=== PATIENT | female | born 1980 | race Caucasian/White ===

== ENCOUNTER 2022-03-19 07:50 | Outpatient (CLI) | payer OTHER, SELFPAY ==
[2022-03-19 08:33] LABS: Potassium 4.4 mmol/L (3.4-5.0)
[2022-03-19 08:35] LABS: Basophils Absolute Auto 0.1 K/mm3 (0.0-0.1); Basophils Percent Auto 0.8 % (0.2-1.2); Eosinophils Absolute Auto 0.3 K/mm3 (0-0.3); Eosinophils Percent Auto 2.9 % (0-4.4); Hematocrit 44.7 % (37.0-47.0); Hemoglobin 14.9 g/dL (12.0-15.0); Immature Granulocyte Absolute 0.07 K/mm3 (0.00-0.031); Immature Granulocyte Percent A 0.7 % (0-0.5); Lymphocytes Absolute Auto 1.88 K/mm3 (0.9-3.2); Lymphocytes Percent Auto 18.5 % (18.3-44.2); Mean Corpuscular HGB Conc 33.3 g/dl (32-36); Mean Corpuscular Hemoglobin 30.5 pg (26-34); Mean Corpuscular Volume 91.6 fl (80-100); Mean Platelet Volume 9.3 fl (7.4-10.4); Monocytes Absolute Auto 0.7 K/mm3 (0.1-0.6); Monocytes Percent Auto 6.4 % (2.6-8.5); Neutrophils Absolute Auto 7.2 K/mm3 (1.3-6.7); Neutrophils Percent Auto 70.7 % (45.5-73.1); Platelet Count Result 341 k/mm3 (150-375); Red Blood Count 4.88 M/mm3 (4.2-5.4); Red Cell Distribution Width 11.7 % (11.5-14.5); White Blood Count 10.1 K/mm3 (4.5-10.0)
== END 2022-03-19 07:51 | disposition home or self-care (01) ==
LOC: ANHLAB 07:54
PROVIDERS: PCP Internal Medicine; Visit Provider Nurse Practitioner
DX: D72.829 Elevated white blood cell count, unspecified (principal); E87.6 Hypokalemia
CPT/HCPCS: 36415; 84132; 85025

== ENCOUNTER → 2022-12-20 12:40 | Outpatient (CLI) | payer OTHER, SELFPAY ==
--- NOTE | ~2022-12-20 | MM_ITS ---
EXAMINATION: MM screening raul BI w dolores HISTORY: Screening mammogram TECHNIQUE: Craniocaudal and mediolateral oblique 3-D tomosynthesis images were obtained and synthetic 2-D images were generated. CAD analysis was submitted and interpreted. COMPARISON: No prior mammogram is available for comparison at this institution. BREAST PARENCHYMAL COMPOSITION: There are scattered areas of fibroglandular density. FINDINGS: There is no evidence of suspicious mass, calcification, or architectural distortion to sugg est malignancy in either breast. There has been no suspicious interval change. IMPRESSION: 1. No mammographic evidence of malignancy. 2. Recommend routine screening mammography in one year. BI-RADS Category 1: Negative Reviewed, dictated and finalized at location A. SET OPERATOR
== END ==
PROVIDERS: PCP Nurse Practitioner; Visit Provider Nurse Practitioner
DX: Z12.31 Encounter for screening mammogram for malignant neoplasm of breast (principal)
CPT/HCPCS: 77063; 77067

== ENCOUNTER 2025-08-11 12:46 | Emergency (ER) | payer OTHER, SELFPAY ==
[2025-08-11] VITALS (24 sets, daily range): BP systolic 125–149; BP diastolic 70–104; PULSE 71–109; RESP 13–25; TEMP 36.8–36.9; O2SAT 96–100
--- NOTE | ~2025-08-11 | XR_ITS ---
EXAMINATION: XR chest 2V, 08/11/2025 14:10 CDT HISTORY: chest pain COMPARISON: No comparisons available. Technique: 2 views obtained. Findings: The lungs are clear, no effusion. No pneumothorax. Heart is normal size. Mediastinal and hilar contours are within normal limits. Bony thorax no acute abnormality. Impression: No acute cardiopulmonary abnormality. Reviewed, dictated and finalized at location P. Impression: No acute cardiopulmonary abnormality.
--- NOTE | ~2025-08-11 | US_ITS ---
EXAMINATION: US right upper quadrant DATE: 08/11/2025 15:17 INDICATION: Right upper quadrant abdominal pain TECHNIQUE: Multiple grayscale and Doppler ultrasound images of the abdomen were obtained. COMPARISON: None FINDINGS: The pancreatic head and body are normal in appearance. The pancreatic tail is not visualized. Liver has normal echogenicity and contour, with a smooth surface. No liver lesion identified. No intrahepatic biliary duct dilation suspected. Portal venous flow was seen in the hepatopetal, normal direction and has normal Doppler waveform. Gallbladder wall echogenic shadow complex with multiple shadowing gallstones filling and obscuring the posterior aspect of the gallbladder. Common bile duct measures 4 mm diameter which is normal. Slice portions the right kidney demonstrates normal contour and echogenicity with no hydronephrosis. Sonographic Jones sign was reported as negative by the analytical technician. IMPRESSION: 1. Numerous gallstones filling the gallbladder which is not dilated and without sonographic Jones sign to suggest acute cholecystitis. No intra- or extrahepatic hepatic biliary ductal dilation. Reviewed, dictated and finalized at location A. IMPRESSION: 1. Numerous gallstones filling the gallbladder which is not dilated and without sonographic Jones sign to suggest acute cholecystitis. No intra- or extrahepa tic hepatic biliary ductal dilation.
--- NOTE | 2025-08-11 12:51 | ECG_ITS ---
Test Date: 2025-08-11 12:56:40 Measurements Intervals [place] Rate: 92 P: 42 MS: 141 QRS: 28 QRSD: 86 T: 30 QT: 366 QTc: 454 Interpretive Statements SINUS RHYTHM NONSPECIFIC ST & T-WAVE ABNORMALITY- INFERIOR LEADS BORDERLINE ECG No previous ECG available for comparison Electronically Signed On 08-11-2025 13:05:57 CDT by Roberto Pickering D.O.
[2025-08-11] MEDS: ASPIRIN 81 MG CHEWABLE TABLET 324 MG PO (14:01)
[2025-08-11 14:08] LABS: Hematocrit 43.7 % (37.0-47.0); Hemoglobin 14.8 g/dL (12.0-15.0); Immature Granulocyte Percent A 0.6 % (0-0.5); Lymphocytes Absolute Auto 2.29 K/mm3 (0.9-3.2); Mean Corpuscular HGB Conc 33.9 g/dl (32-36); Mean Corpuscular Hemoglobin 30.3 pg (26-34); Mean Corpuscular Volume 89.4 fl (80-100); Nucleated Red Blood Cells Absolute Auto 0.000 K/mm3 (0.0-0.012); Nucleated Red Blood Cells Perc 0.0 % (0.0-0.2); Platelet Count Result 309 k/mm3 (150-375); Red Blood Count 4.89 M/mm3 (4.2-5.4); White Blood Count 14.0 K/mm3 (4.5-10.0)
--- NOTE | 2025-08-11 14:18 | ED.GENADULT ---
HPI - General Adult General Chief complaint: Chest Pain <Danita Bone March, - Last Filed: 08/11/25 19:41> Stated complaint: chest pain <Danita Bone March, - Last Filed: 08/11/25 19:41> Time Seen by Provider: 08/11/25 13:16 <Danita Bone March, - Last Filed: 08/11/25 19:41> History of Present Illness HPI narrative: Lizette Negrete is a 45 y/o female with past medical history of hypertension who presents today with reports of having chest pain last night. She said around 8:00 a.m. she thought that she felt hunger pains in her upper abdomen so she went ice cream and was laying down and took a bite and then started to have severe sharp very tight it to the epigastric area pain to the point that her had called 911. EMS came and did an EKG in vital signs and while they were there the pain went completely away. She states that the pain is still gone she feels a little slight epigastric pain at that feels like an after effect raining out like a 1/10. She denies any nausea or vomiting now but says that she felt a little nauseous last night. No history of heart attack in the past denies shortness of breath no chest pain at this time. <Danita Bone March, Last Filed: 08/11/25 19:41> Related Data Home medications: Home Medications ?Medication ?Instructions ?Recorded ?Confirmed ?Last Taken ?Type cetirizine 10 mg tablet (Zyrtec) 10 mg PO DAILY 11/01/20 01/29/25 Unknown History cholecalciferol (vitamin D3) 25 1,000 unit PO DAILY 11/01/20 01/29/25 Unknown History mcg (1,000 unit) capsule multivitamin-ferrous 1 tablet PO DAILY 11/01/20 01/29/25 Unknown History fumarate-folic acid 18 mg-400 mcg tablet (Centrum) zonisamide 100 mg capsule 200 mg PO DAILY 11/01/20 01/29/25 Unknown History <Danita Bone March, Last Filed: 08/11/25 19:41> Allergies/adverse reactions: Allergies Allergy/AdvReac Type Severity Reaction Status Date / Time ibuprofen Allergy Unknown Hives Verified 10/08/25 12:49 hydrogen peroxide Allergy Rash Verified 08/11/25 12:49 <Danita Rodriguez APRN - Last Filed: 08/11/25 19:41> Review of Systems Review of Systems: All systems reviewed & are unremarkable except as noted in HPI and below <Danita Rodriguez ACQUISITIONS ASSISTANT - Last Filed: 08/11/25 19:41> PMFSH Past Medical History Medical History: Medical History Hyperkalemia Bunion removal delivery delivered 03/18/13 Heartburn Allergies Depression Chronic fatigue Essential hypertension Hypercholesterolemia with hypertriglyceridemia Hypokalemia IIH (idiopathic intracranial hypertension) <Danita Rodriguez ACQUISITIONS ASSISTANT - Last Filed: 08/11/25 19:41> Surgical History Surgical History: Surgical History H/O: hysterectomy <Danita Rodriguez ACQUISITIONS ASSISTANT - Last Filed: 08/11/25 19:41> Family History Family History: Family History Mother Patient's mother is in good health Father Sleep apnea Mixed hyperlipidemia Intracranial hypertension <Danita Rodriguez ACQUISITIONS ASSISTANT - Last Filed: 08/11/25 19:41> Social History Social History: Social History Smoking status: Never smoker Alcohol intake: never Lack of Transportation: No Lack of Food: Never True Current Housing: I Have Housing Concerned About Future Housing: No Difficulty Paying Gas/Electric Bills: No Difficulty Paying for Meds: No Currently Unemployed: No Education: Master's Degree or Higher Difficulty w/ Childcare or Family Care: No <Danita Rodriguez, ACQUISITIONS ASSISTANT - Last Filed: 08/11/25 19:41> Exam Narrative: GENERAL: Well-appearing, well-nourished, and in no acute distress. HEAD: Normocephalic, atraumatic. EYES: PERRLA and EOMI. ENT: Nares clear, no rhinorrhea or epistaxis. Mucous membranes moist. Oropharynx without tonsillar hypertrophy exudate or other lesions. NECK: Supple. No adenopathy or masses. No carotid bruits or JVD CHEST: Clear to auscultation. No respiratory distress. No wheezes rales or rhonchi HEART: Regular rate and rhythm. No murmur heard. Normal peripheral pulses. ABDOMEN: Soft, nondistended, normal active bowel sounds, + epigastric pain with palpation EXTREMITIES: Normal range of motion. No edema. SKIN: Warm, dry, no rash. NEURO: No focal deficits. Alert and oriented x3. PSYCH: Normal mood and affect. <Danita Rodriguez, ACQUISITIONS ASSISTANT - Last Filed: 08/11/25 19:41> Course Vital Signs Vital signs: Vital Signs Temperature 36.8 C 08/11/25 12:50 Pulse Rate 109 H 08/11/25 12:50 Respiratory Rate 20 08/11/25 12:50 Blood Pressure 148/98 H 08/11/25 12:50 Pulse Oximetry 96 08/11/25 12:50 Temperature 36.8 C 08/11/25 12:50 Pulse Rate 88 08/11/25 19:31 Respiratory Rate 13 08/11/25 19:31 Blood Pressure 132/84 08/11/25 19:31 Pulse Oximetry 99 08/11/25 19:31 Oxygen Delivery Room Air 08/11/25 15:45 <Danita Rodriguez, ACQUISITIONS ASSISTANT - Last Filed: 08/11/25 19:41> Vital Signs Temperature 36.8 C 08/11/25 12:50 Pulse Rate 109 H 08/11/25 12:50 Respiratory Rate 20 08/11/25 12:50 Blood Pressure 148/98 H 08/11/25 12:50 Pulse Oximetry 96 08/11/25 12:50 Temperature 36.8 C 08/11/25 12:50 Pulse Rate 88 08/11/25 19:31 Respiratory Rate 13 08/11/25 19:31 Blood Pressure 132/84 08/11/25 19:31 Pulse Oximetry 99 08/11/25 19:31 Oxygen Delivery Room Air 08/11/25 15:45 <Nuha Hidalgo, ACQUISITIONS ASSISTANT - Last Filed: 08/11/25 21:37> Medical Decision Making MDM Narrative Medical decision making narrative: 45-year-old presents with reports of having episode mid chest epigastric tight pain 08/13 last night the lasted about 30 minutes. The pain has not returned she is feeling well no chest pain or shortness of breath no fevers no chills no nausea no vomiting she called her primary care doctor today to let them know to follow up to see well she should do they told her that she should go to the emergency room for further evaluation. Concern for cardiac ischemia mom cholecystitis, cholelithiasis, GERD Plan to check labs chest x-ray ultrasound of right upper quadrant EKG- Sinus Rate 92 CBC Leukocytosis 14, hemodynamically stable CMP-sodium 136, potassium 2.7-replenishing with p.o. and IV, BUN 27, ALT 37 Troponin 1-negative Troponin 2-negative Troponin 3- Negative Lipase-83 Chest x-ray-no acute cardiopulmonary finding Ultrasound right upper quad-Numerous gallstones filling the gallbladder which is not dilated and without sonographic Jones sign to suggest acute cholecystitis. No intra- or extrahepatic hepatic biliary ductal dilation. Heart score of 3 She continues to deny having any chest pain or any recurrent pain while being here. I discussed with her that her workup so far is reassuring outside of the low potassium. She states that she is used to having a low potassium she gets this checked frequently with her PCP and she is on potassium pills however help correct this. She states that she feels comfortable and would prefer to go home after her potassium was corrected and she will call her primary tomorrow and they will follow up with her potassium levels and adjust her potassium intake. Regarding her new findings of the gallstones will give her general surgery to follow up with regarding this ordered Patient provided with strict return precautions if she develops any chest pain and shortness of breath or develops any increased upper abdominal pain. patient handed off to GARY Hidalgo pending repeat potassium. IF it is normal she can go home, if it is still low she will need to stay for further evaluation. Patient is agreebale to this plan and is hoping to go home. <Danita Rodriguez, ACQUISITIONS ASSISTANT - Last Filed: 08/11/25 19:41> 45-year-old presents with reports of having episode mid chest epigastric tight pain 10/ last night the lasted about 30 minutes. The pain has not returned she is feeling well no chest pain or shortness of breath no fevers no chills no nausea no vomiting she called her primary care doctor today to let them know to follow up to see well she should do they told her that she should go to the emergency room for further evaluation. Concern for cardiac ischemia mom cholecystitis, cholelithiasis, GERD Plan to check labs chest x-ray ultrasound of right upper quadrant EKG- Sinus Rate 92 CBC Leukocytosis 14, hemodynamically stable CMP-sodium 136, potassium 2.7-replenishing with p.o. and IV, BUN 27, ALT 37 Troponin 1-negative Troponin 2-negative Troponin 3- Negative Lipase-83 Chest x-ray-no acute cardiopulmonary finding Ultrasound right upper quad-Numerous gallstones filling the gallbladder which is not dilated and without sonographic Jones sign to suggest acute cholecystitis. No intra- or extrahepatic hepatic biliary ductal dilation. Heart score of 3 She continues to deny having any chest pain or any recurrent pain while being here. I discussed with her that her workup so far is reassuring outside of the low potassium. She states that she is used to having a low potassium she gets this checked frequently with her PCP and she is on potassium pills however help correct this. She states that she feels comfortable and would prefer to go home after her potassium was corrected and she will call her primary tomorrow and they will follow up with her potassium levels and adjust her potassium intake. Regarding her new findings of the gallstones will give her general surgery to follow up with regarding this ordered Patient provided with strict return precautions if she develops any chest pain and shortness of breath or develops any increased upper abdominal pain. patient handed off to MANAGER ADOBE Nuha Hidalgo pending repeat potassium. IF it is normal she can go home, if it is still low she will need to stay for further evaluation. Patient is agreeable to this plan and is hoping to go home. Patient Education/Shared MDM: Results of lab work shared with patient. She endorses improvement of symptoms following medication administration and would like to be discharged home. Patient strongly advised to follow-up with her PCP as soon as possible. She will not be discharged home with any new prescriptions. Strict return precautions provided. Patient verbalized understanding and is in agreement with plan. Vital signs stable at time of discharge. All questions answered. <Nuha Hidalgo APRN - Last Filed: 08/11/25 21:37> Differential Diagnosis Differential Diagnosis: STEMI, GERD, hypo care <Nuha Hidalgo APRN - Last Filed: 08/11/25 21:37> Medical Records Medical records reviewed: Yes I reviewed the external patient's medical records. <Danita Rodriguez, ACQUISITIONS ASSISTANT - Last Filed: 08/11/25 19:41> Vital Signs Vital Signs: Vital Signs Temperature 36.8 C 08/11/25 12:50 Pulse Rate 109 H 08/11/25 12:50 Respiratory Rate 20 08/11/25 12:50 Blood Pressure 148/98 H 08/11/25 12:50 Pulse Oximetry 96 08/11/25 12:50 Temperature 36.8 C 08/11/25 12:50 Pulse Rate 88 08/11/25 19:31 Respiratory Rate 13 08/11/25 19:31 Blood Pressure 132/84 08/11/25 19:31 Pulse Oximetry 99 08/11/25 19:31 Oxygen Delivery Room Air 08/11/25 15:45 Vitals reviewed <Danita Rodriguez, ACQUISITIONS ASSISTANT - Last Filed: 08/11/25 19:41> Vital Signs Temperature 36.8 C 08/11/25 12:50 Pulse Rate 109 H 08/11/25 12:50 Respiratory Rate 20 08/11/25 12:50 Blood Pressure 148/98 H 08/11/25 12:50 Pulse Oximetry 96 08/11/25 12:50 Temperature 36.8 C 08/11/25 12:50 Pulse Rate 88 08/11/25 19:31 Respiratory Rate 13 08/11/25 19:31 Blood Pressure 132/84 08/11/25 19:31 Pulse Oximetry 99 08/11/25 19:31 Oxygen Delivery Room Air 08/11/25 15:45 <Nuha Hidalgo, ACQUISITIONS ASSISTANT - Last Filed: 08/11/25 21:37> Lab Data Lab results reviewed: Yes I reviewed the patient's lab results. <Danita Rodriguez, ACQUISITIONS ASSISTANT - Last Filed: 08/11/25 19:41> Result diagrams: 08/11/25 14:02 08/11/25 20:49 <Danita Rodriguez, ACQUISITIONS ASSISTANT - Last Filed: 08/11/25 19:41> Labs: Lab Results 08/11/25 08/11/25 08/11/25 Range/Units 14:02 15:51 18:42 WBC 14.0 H (4.5-10.0) K/mm3 RBC 4.89 (4.2-5.4) M/mm3 Hgb 14.8 (12.0-15.0) g/dL Hct 43.7 (37.0-47.0) % MCV 89.4 (80-100) fl MCH 30.3 (26-34) pg MCHC 33.9 (32-36) g/dl RDW 12.2 (11.5-14.5) % Plt Count 309 (150-375) k/mm3 MPV 8.9 (7.4-10.4) fl Immature Gran % (Auto) 0.6 H (0-0.5) % Neut % (Auto) 74.1 H (45.5-73.1) % Lymph % (Auto) 16.3 L (18.3-44.2) % [place] % (Auto) 7.0 (2.6-8.5) % Eos % (Auto) 1.4 (0-4.4) % Baso % (Auto) 0.6 (0.2-1.2) % Lymph # (Auto) 2.29 (0.9-3.2) K/mm3 [place] # (Auto) 1.0 H (0.1-0.6) K/mm3 Eos # (Auto) 0.2 (0-0.3) K/mm3 Baso # (Auto) 0.1 (0.0-0.1) K/mm3 Abs Immat Gran (auto) 0.09 H (0.00-0.031) K/mm3 Absolute Neuts (auto) 10.4 H (1.3-6.7) K/mm3 Absolute Nucleated RBC 0.000 (0.0-0.012) K/mm3 Nucleated RBC % 0.0 (0.0-0.2) % PT 13.2 (11.1-14.7) Seconds INR 1.0 APTT 27.8 (22.3-36.8) Seconds Sodium 136 L (137-145) mmol/L Potassium 2.7 L* (3.4-5.0) mmol/L Chloride 99 (98-107) mmol/L Carbon Dioxide 29 (22-30) mmol/L Anion Gap 8 (4-12) mmol/L BUN 27 H (7-17) mg/dL Creatinine 0.93 (0.7-1.0) mg/dL Estim Creat Clear Calc 81 ml/min Estimated GFR > 60 (59 - ) Glucose 96 (65-110) mg/dL Calcium 9.1 (8.4-10.2) mg/dL Total Bilirubin 0.7 (0.2-1.3) mg/dL AST 33 (14-36) U/L ALT 37 H (6-35) U/L Alkaline Phosphatase 85 (38-126) U/L Troponin I < 0.012 < 0.012 < 0.012 (0.000-0.034) ng/mL Total Protein 7.3 (6.3-8.2) g/dL Albumin 4.3 (3.5-5.1) g/dL Lipase 83 (23-300) U/L 08/11/25 Range/Units 20:49 WBC (4.5-10.0) K/mm3 RBC (4.2-5.4) M/mm3 Hgb (12.0-15.0) g/dL Hct (37.0-47.0) % MCV (80-100) fl MCH (26-34) pg MCHC (32-36) g/dl RDW (11.5-14.5) % Plt Count (150-375) k/mm3 MPV (7.4-10.4) fl Immature Gran % (Auto) (0-0.5) % Neut % (Auto) (45.5-73.1) % Lymph % (Auto) (18.3-44.2) % [place] % (Auto) (2.6-8.5) % Eos % (Auto) (0-4.4) % Baso % (Auto) (0.2-1.2) % Lymph # (Auto) (0.9-3.2) K/mm3 [place] # (Auto) (0.1-0.6) K/mm3 Eos # (Auto) (0-0.3) K/mm3 Baso # (Auto) (0.0-0.1) K/mm3 Abs Immat Gran (auto) (0.00-0.031) K/mm3 Absolute Neuts (auto) (1.3-6.7) K/mm3 Absolute Nucleated RBC (0.0-0.012) K/mm3 Nucleated RBC % (0.0-0.2) % PT (11.1-14.7) Seconds INR APTT (22.3-36.8) Seconds Sodium (137-145) mmol/L Potassium 3.3 L (3.4-5.0) mmol/L Chloride (98-107) mmol/L Carbon Dioxide (22-30) mmol/L Anion Gap (4-12) mmol/L BUN (7-17) mg/dL Creatinine (0.7-1.0) mg/dL Estim Creat Clear Calc ml/min Estimated GFR (59 - ) Glucose (65-110) mg/dL Calcium (8.4-10.2) mg/dL Total Bilirubin (0.2-1.3) mg/dL AST (14-36) U/L ALT (6-35) U/L Alkaline Phosphatase (38-126) U/L Troponin I (0.000-0.034) ng/mL Total Protein (6.3-8.2) g/dL Albumin (3.5-5.1) g/dL Lipase (23-300) U/L <Danita Rodriguez, ACQUISITIONS ASSISTANT - Last Filed: 08/11/25 19:41> Lab Results 08/11/25 08/11/25 08/11/25 Range/Units 14:02 15:51 18:42 WBC 14.0 H (4.5-10.0) K/mm3 RBC 4.89 (4.2-5.4) M/mm3 Hgb 14.8 (12.0-15.0) g/dL Hct 43.7 (37.0-47.0) % MCV 89.4 (80-100) fl MCH 30.3 (26-34) pg MCHC 33.9 (32-36) g/dl RDW 12.2 (11.5-14.5) % Plt Count 309 (150-375) k/mm3 MPV 8.9 (7.4-10.4) fl Immature Gran % (Auto) 0.6 H (0-0.5) % Neut % (Auto) 74.1 H (45.5-73.1) % Lymph % (Auto) 16.3 L (18.3-44.2) % [place] % (Auto) 7.0 (2.6-8.5) % Eos % (Auto) 1.4 (0-4.4) % Baso % (Auto) 0.6 (0.2-1.2) % Lymph # (Auto) 2.29 (0.9-3.2) K/mm3 [place] # (Auto) 1.0 H (0.1-0.6) K/mm3 Eos # (Auto) 0.2 (0-0.3) K/mm3 Baso # (Auto) 0.1 (0.0-0.1) K/mm3 Abs Immat Gran (auto) 0.09 H (0.00-0.031) K/mm3 Absolute Neuts (auto) 10.4 H (1.3-6.7) K/mm3 Absolute Nucleated RBC 0.000 (0.0-0.012) K/mm3 Nucleated RBC % 0.0 (0.0-0.2) % PT 13.2 (11.1-14.7) Seconds INR 1.0 APTT 27.8 (22.3-36.8) Seconds Sodium 136 L (137-145) mmol/L Potassium 2.7 L* (3.4-5.0) mmol/L Chloride 99 (98-107) mmol/L Carbon Dioxide 29 (22-30) mmol/L Anion Gap 8 (4-12) mmol/L BUN 27 H (7-17) mg/dL Creatinine 0.93 (0.7-1.0) mg/dL Estim Creat Clear Calc 81 ml/min Estimated GFR > 60 (59 - ) Glucose 96 (65-110) mg/dL Calcium 9.1 (8.4-10.2) mg/dL Total Bilirubin 0.7 (0.2-1.3) mg/dL AST 33 (14-36) U/L ALT 37 H (6-35) U/L Alkaline Phosphatase 85 (38-126) U/L Troponin I < 0.012 < 0.012 < 0.012 (0.000-0.034) ng/mL Total Protein 7.3 (6.3-8.2) g/dL Albumin 4.3 (3.5-5.1) g/dL Lipase 83 (23-300) U/L 08/11/25 Range/Units 20:49 WBC (4.5-10.0) K/mm3 RBC (4.2-5.4) M/mm3 Hgb (12.0-15.0) g/dL Hct (37.0-47.0) % MCV (80-100) fl MCH (26-34) pg MCHC (32-36) g/dl RDW (11.5-14.5) % Plt Count (150-375) k/mm3 MPV (7.4-10.4) fl Immature Gran % (Auto) (0-0.5) % Neut % (Auto) (45.5-73.1) % Lymph % (Auto) (18.3-44.2) % [place] % (Auto) (2.6-8.5) % Eos % (Auto) (0-4.4) % Baso % (Auto) (0.2-1.2) % Lymph # (Auto) (0.9-3.2) K/mm3 [place] # (Auto) (0.1-0.6) K/mm3 Eos # (Auto) (0-0.3) K/mm3 Baso # (Auto) (0.0-0.1) K/mm3 Abs Immat Gran (auto) (0.00-0.031) K/mm3 Absolute Neuts (auto) (1.3-6.7) K/mm3 Absolute Nucleated RBC (0.0-0.012) K/mm3 Nucleated RBC % (0.0-0.2) % PT (11.1-14.7) Seconds INR APTT (22.3-36.8) Seconds Sodium (137-145) mmol/L Potassium 3.3 L (3.4-5.0) mmol/L Chloride (98-107) mmol/L Carbon Dioxide (22-30) mmol/L Anion Gap (4-12) mmol/L BUN (7-17) mg/dL Creatinine (0.7-1.0) mg/dL Estim Creat Clear Calc ml/min Estimated GFR (59 - ) Glucose (65-110) mg/dL Calcium (8.4-10.2) mg/dL Total Bilirubin (0.2-1.3) mg/dL AST (14-36) U/L ALT (6-35) U/L Alkaline Phosphatase (38-126) U/L Troponin I (0.000-0.034) ng/mL Total Protein (6.3-8.2) g/dL Albumin (3.5-5.1) g/dL Lipase (23-300) U/L <Nuha Hidalgo APRN Last Filed: 08/11/25 21:37> Imaging Data Attestation: I personally reviewed and interpreted this imaging study as follows: <Nuha Hidalgo ACQUISITIONS ASSISTANT Last Filed: 08/11/25 21:37> Radiologist's impression: Impressions Chest X-Ray 08/11/25 14:17 Impression: No acute cardiopulmonary abnormality. Upper Quadrant Ultrasound 08/11/25 15:35 IMPRESSION: 1. Numerous gallstones filling the gallbladder which is not dilated and without sonographic Jones sign to suggest acute cholecystitis. No intra- or extrahepatic hepatic biliary ductal dilation. <Danita Rodriguez Last Filed: 08/11/25 19:41> ECG Data EKG #1: ECG completion date: 08/11/25 <Danita Bone March, Last Filed: 08/11/25 19:41> ECG completion time: 12:56 <Danita Bone March, Last Filed: 08/11/25 19:41> Interpretation: Rate 92 NC 141 QRSd 86 QT 366 QTc 454 --[place]-- P 42 QRS 28 T [address] & T-WAVE ABNORMALITY- INFERIOR LEADS <Danita Bone March, Last Filed: 08/11/25 19:41> Discharge Plan Discharge Clinical Impression: Acute hypokalemia, Gallstones <Danita Bone March, Last Filed: 08/11/25 19:41> Patient Disposition: Home <Danita Bone March, Last Filed: 08/11/25 19:41> Condition: Stable <Danita Bone March, Last Filed: 08/11/25 19:41> Instructions: Antibiotic Form, Gallstones (ED), Hypokalemia (ED) <Danita Bone March, Last Filed: 08/11/25 19:41> Additional Instructions: Please continue your home Potassium, call your PCP tomorrow as we discussed to see if they would like to adjust your potassium regimen at home and for follow up. IF you should develop any new or worsening symptoms such as chest pain, abdominal pain,nausea,vomiting then return to the ER Also, with the new gallstone findings, call to follow up with surgery as discussed. <Danita Rodriguez APRN - Last Filed: 08/11/25 19:41> Patient Language: Amharic <Danita Rodriguez ACQUISITIONS ASSISTANT - Last Filed: 08/11/25 19:41> Prescriptions: No Action Centrum 18-400 mg-mcg tablet 1 tablet PO DAILY zonisamide 100 mg capsule 200 mg PO DAILY cetirizine [Zyrtec] 10 mg tablet 10 mg PO DAILY cholecalciferol (vitamin D3) 25 mcg (1,000 unit) capsule 1,000 unit PO DAILY Wegovy 0.25 mg/0.5 mL pen injector 0.25 mg subcut WEEKLY Qty: 2 0RF Rx Instructions: administer weeks 1 through 4 of therapy potassium chloride 20 mEq tablet,ER particles/crystals See Rx Instructions .ROUTE .COMPLEX Qty: 270 1RF Dose Instruction: TAKE 1 TABLET BY MOUTH 3 TIMES DAILY Rx Instructions: TAKE 1 TABLET BY MOUTH 3 TIMES DAILY bupropion HCl 150 mg tablet sustained-release 12 hr See Rx Instructions .ROUTE .COMPLEX Qty: 90 1RF Dose Instruction: Take 1 tablet by mouth once daily Rx Instructions: Take 1 tablet by mouth once daily trazodone 150 mg tablet See Rx Instructions .ROUTE .COMPLEX Qty: 90 1RF Dose Instruction: Take 1 tablet by mouth once daily Rx Instructions: Take 1 tablet by mouth once daily montelukast [Singulair] 10 mg tablet 10 mg PO DAILY Qty: 90 1RF hydrochlorothiazide 25 mg tablet See Rx Instructions .ROUTE .COMPLEX Qty: 90 1RF Dose Instruction: Take 1 tablet by mouth once daily Rx Instructions: Take 1 tablet by mouth once daily <Danita Rodriguez, ACQUISITIONS ASSISTANT - Last Filed: 08/11/25 19:41> Follow-up/Referrals: Kavita Paredes NP [Primary Care Provider, Internal Medicine] - 1 Day Jayce Presley MD [Physician, General Surgery] - 1 Week <Danita Rodriguez, ACQUISITIONS ASSISTANT - Last Filed: 08/11/25 19:41> Time of Disposition: 21:34 <Danita Rodriguez ACQUISITIONS ASSISTANT - Last Filed: 08/11/25 19:41> 21:34 <Nuha Hidalgo, - Last Filed: 08/11/25 21:37> Quality HEART score for chest pain patients History: moderately suspicious <Danita Bone March, Last Filed: 08/11/25 19:41> ECG: non specific repolarization disturbance/LBTB/PM <Danita Bone March, - Last Filed: 08/11/25 19:41> Age: < or = to 45 years <Danita Bone March, Last Filed: 08/11/25 19:41> Risk factors: 1 or 2 risk factors <Danita Bone March, Last Filed: 08/11/25 19:41> Troponin: < or = to 1x normal limit <Danita Bone March, Last Filed: 08/11/25 19:41> Heart score: 3 <Danita Bone March, Last Filed: 08/11/25 19:41> 3 <Nuha Hidalgo, Last Filed: 08/11/25 21:37>
[2025-08-11 14:22] LABS: Alanine Aminotransferase 37 U/L (6-35); Albumin Level 4.3 g/dL (3.5-5.1); Alkaline Phosphatase 85 U/L (38-126); Anion Gap 8 mmol/L (4-12); Aspartate Amino Transferase 33 U/L (14-36); Bilirubin,Total 0.7 mg/dL (0.2-1.3); Blood Urea Nitrogen 27 mg/dL (7-17); Calcium 9.1 mg/dL (8.4-10.2); Carbon Dioxide 29 mmol/L (22-30); Chloride 99 mmol/L (98-107); Estimated CRCL calculation 81 ml/min; Estimated Glomerular Filt Rate > 60; Glucose 96 mg/dL (65-110); Lipase 83 U/L (23-300); Potassium 2.7 mmol/L (3.4-5.0); Sodium 136 mmol/L (137-145); Total Protein 7.3 g/dL (6.3-8.2)
[2025-08-11 14:25] LABS: INR 1.0; Prothrombin Time 13.2 Seconds (11.1-14.7)
[2025-08-11 14:26] LABS: Partial Thromboplastin Time 27.8 Seconds (22.3-36.8)
[2025-08-11 14:32] LABS: Troponin I < 0.012 ng/mL (0.000-0.034)
[2025-08-11] MEDS: POTASSIUM CHLORIDE 20 MEQ ER TABLET 40 MEQ PO (15:31)
[2025-08-11] MEDS: FAMOTIDINE 20 MG/2 ML VIAL IV PUSH (15:32)
[2025-08-11] MEDS: POTASSIUM CHLORIDE INJ 40 MEQ in SODIUM CHLORIDE 0.9% IV 500 ML 130 MEQ IVPB (15:36)
[2025-08-11] MEDS: SODIUM CHLORIDE 0.9% IV 1,000 ML 150 ML IV CONT (15:36)
--- NOTE | 2025-08-11 15:39 | ECG_ITS ---
Test Date: 2025-08-11 15:47:49 Measurements Intervals [place] Rate: 67 P: 12 [place]: 155 QRS: 14 QRSD: 90 T: 15 QT: 398 QTc: 422 Interpretive Statements SINUS RHYTHM BORDERLINE T WAVE ABNORMALITY- INFERIOR LEADS BASELINE ARTIFACT- I, II, AVR, AVL, AVF, V4-V6 BORDERLINE ECG Compared to ECG 08/11/2025 12:56:40 No significant changes Electronically Signed On 08-11-2025 16:20:04 CDT by Roberto Pickering D.O.
[2025-08-11 16:17] LABS: Troponin I < 0.012 ng/mL (0.000-0.034)
[2025-08-11 19:11] LABS: Troponin I < 0.012 ng/mL (0.000-0.034)
[2025-08-11 21:05] LABS: Potassium 3.3 mmol/L (3.4-5.0)
== END 2025-08-11 22:04 | disposition home or self-care (01) ==
PROVIDERS: Emergency Medicine; Emergency Provider Nurse Practitioner Family; PCP Nurse Practitioner
DX: K80.20 Calculus of gallbladder without cholecystitis without obstruction (principal); E87.6 Hypokalemia; I10 Essential (primary) hypertension; E78.00 Pure hypercholesterolemia, unspecified; E78.1 Pure hyperglyceridemia; F32.A Depression, unspecified; R94.31 Abnormal electrocardiogram [ECG] [EKG]; Z79.899 Other long term (current) drug therapy
CPT/HCPCS: 36415; 71046; 76705; 80053; 83690; 84132; 84484; 85025; 85610; 85730; 93005; 96365; 96366; 96375; 99284; A9270; J3480; J7030; J7040

== ENCOUNTER 2025-08-12 14:04 | Outpatient (CLI) | payer OTHER, SELFPAY ==
[2025-08-12 18:25] LABS: Potassium 3.9 mmol/L (3.4-5.0)
== END 2025-08-12 14:05 | disposition home or self-care (01) ==
LOC: ANHGOSHLAB 14:04
PROVIDERS: PCP Nurse Practitioner; Visit Provider Nurse Practitioner
DX: E87.6 Hypokalemia (principal)
CPT/HCPCS: 36415; 84132